=== PATIENT | male | born 1960 | race Caucasian/White ===

== ENCOUNTER 2023-10-06 14:13 | Emergency (ER) | payer OTHER, SELFPAY ==
[2023-10-06 14:21] VITALS: BP 165/84; PULSE 58; TEMP 37; O2SAT 97; BMI 35.7
--- NOTE | 2023-10-06 14:36 | ED.GENADUL1 ---
HPI HPI - General Adult General Chief complaint: Nausea/Vomiting/Diarrhea Stated complaint: NEASUA, VOMITING, DIARRHEA Time Seen by Provider: 10/06/23 14:33 Source: patient Mode of arrival: walk-in History of Present Illness HPI narrative: Patient is a 62-year-old male who presents to the emergency department for 3-day history of vomiting and diarrhea. He reports bilious emesis, multiple episodes of loose stool. He has not had any fevers, upper respiratory symptoms, body aches. He denies abdominal pain, bloody stool or urinary symptoms. No flank or back pain. 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 No new or unusual foods. No medications taken prior to arrival. Patient states he was concerned about getting dehydrated because of the heat which prompted him to come to the ER. Related Data Previous Rx's ?Medication ?Instructions ?Recorded hyoscyamine sulfate 0.125 mg 0.125 mg PO Q6H PRN abdominal pain 10/06/23 tablet (Levsin) #12 tabs ondansetron 4 mg disintegrating 4 mg PO Q6H PRN nausea and 10/06/23 tablet vomiting #12 tabs Allergies Allergy/AdvReac Type Severity Reaction Status Date / Time No Known Drug Allergies Allergy Verified 10/06/23 14:24 Opioid HPI Opioid Management Most Recent Opioid Data: No Data to Display Review of Systems ROS Constitutional Denies: fever or chills Eyes Denies: change in vision Ears, nose, mouth, and throat Denies: throat pain or nasal congestion Cardiovascular Denies: chest pain Respiratory Denies: shortness of breath Gastrointestinal Reports: nausea, vomiting and diarrhea; Denies: abdominal pain Musculoskeletal Denies: back pain Integumentary/Breast Denies: rash Neurological Denies: headache Hematologic/Lymphatic Denies: easy bruising or easy bleeding Exam Narrative Exam Narrative: Gen.: Awake, alert, in no distress Head: Normocephalic, atraumatic ENT: Moist mucous membranes Respiratory: No respiratory distress, lungs clear bilaterally Cardio: Regular rate and rhythm Gastrointestinal: Abdomen is soft, nondistended and nontender to palpation Extremities: Moves extremities equally Psych: Normal mood and affect Neuro: No focal neuro deficit Skin: Warm, dry, intact Constitutional Vital Signs, click to edit/add: Last Vital Signs Temp 98.6 F 10/06/23 14:21 Pulse 53 L 10/06/23 15:47 Resp 18 10/06/23 15:47 BP 124/70 10/06/23 15:47 Pulse Ox 96 10/06/23 15:47 O2 Del Method Room Air 10/06/23 14:21 Course Vital Signs Vital signs: Vital Signs Temperature 98.6 F 10/06/23 14:21 Pulse Rate 58 L 10/06/23 14:21 Respiratory Rate 18 10/06/23 14:21 Blood Pressure 165/84 H 10/06/23 14:21 Pulse Oximetry 97 10/06/23 14:21 Oxygen Delivery Method Room Air 10/06/23 14:21 Temperature 98.6 F 10/06/23 14:21 Pulse Rate 53 L 10/06/23 15:47 Respiratory Rate 18 10/06/23 15:47 Blood Pressure 124/70 10/06/23 15:47 Pulse Oximetry 96 10/06/23 15:47 Oxygen Delivery Method Room Air 10/06/23 14:21 Medical Decision Making MDM Narrative Medical decision making narrative: Patient with no episodes of emesis in the ER. Labs are unremarkable, vitals are stable. Abdomen is soft and benign and the patient has no complaints of abdominal pain in the ER. He was treated with IV fluids, Zofran and Levsin is discharged home with the same. Follow-up with PCP and return to the ER if symptoms change or worsen On reevaluation by attending physician, patient states he would like to be checked for C. difficile. He did not produce any stool in the ER and was given an outpatient order for this. SHARED APC VISIT, PHYSICIAN ATTESTATION: [id number] I performed a substantive part of the MDM during the patient?s E/M visit. I personally evaluated and examined the patient. I personally made or approved the documented management plan and acknowledge its risk of complications. Medical Records Medical records reviewed: Yes I reviewed the patient's medical records Lab Data Lab results reviewed: Yes I reviewed the patient's lab results Labs: Lab Results 10/06/23 Range/Units 15:13 WBC 8.4 (4.0-11.0) 10^3/uL RBC 4.39 L (4.70-6.10) 10^6/uL Hgb 14.2 (14.0-18.0) g/dL Hct 41.1 L (42.0-54.0) % MCV 93.6 (80.0-94.0) fL MCH 32.3 (25.9-34.0) pg MCHC 34.5 (29.9-35.2) g/dL RDW 13.0 (11.0-15.0) % Plt Count 230 (150-450) 10^3/uL MPV 9.2 L (9.5-13.5) fL Neut % (Auto) 59.1 (43.0-75.0) % Lymph % (Auto) 27.8 (20.5-60.0) % [place] % (Auto) 7.1 (1.7-12.0) % Eos % (Auto) 5.3 (0.9-7.0) % Baso % (Auto) 0.5 (0.2-2.0) % Neut # (Auto) 5.0 (1.4-6.5) 10^3/uL Lymph # (Auto) 2.3 (1.2-3.8) 10^3/uL [place] # (Auto) 0.6 (0.3-0.8) 10^3/uL Eos # (Auto) 0.4 (0.0-0.7) 10^3/uL Baso # (Auto) 0.0 (0.0-0.1) 10^3/uL Abs Immat Gran (auto) 0.02 (0.00-0.03) 10^3/uL Imm/Tot Granulo (auto) 0.2 (0.0-0.5) % Sodium 136 (136-145) mmol/L Potassium 3.6 (3.5-5.1) mmol/L Chloride 105 (98-107) mmol/L Carbon Dioxide 26.1 (21.0-32.0) mmol/L Anion Gap 8.5 BUN 15.0 (7.0-18.0) mg/dL Creatinine 0.86 (0.70-1.30) mg/dL Est GFR ( Amer) >60 (>=60) Est GFR (Non-Af Amer) >60 (>=60) BUN/Creatinine Ratio 17.4 Glucose 103 (74-106) mg/dL Lactate 0.9 (0.4-2.0) mmol/L Calcium 9.0 (8.5-10.1) mg/dL Total Bilirubin 0.4 (0.2-1.0) mg/dL AST 17 (15-37) U/L ALT 32 (16-63) U/L Alkaline Phosphatase 92 (46-116) U/L Total Protein 7.0 (6.4-8.2) g/dL Albumin 3.3 L (3.4-5.0) g/dL Globulin 3.7 g/dL Albumin/Globulin Ratio 0.9 Lipase 28.0 (16.0-77.0) U/L Discharge Plan Discharge Stand Alone Forms: Portal Instructions Chief Complaint: Nausea/Vomiting/Diarrhea Clinical Impression: Nausea, vomiting and diarrhea Patient Disposition: Home, Self-Care Time of Disposition Decision: 16:22 Condition: Good Prescriptions / Home Meds: New hyoscyamine sulfate [Levsin] 0.125 mg tablet 0.125 mg PO Q6H PRN (Reason: abdominal pain) Qty: 12 0RF ondansetron 4 mg tablet,disintegrating 4 mg PO Q6H PRN (Reason: nausea and vomiting) Qty: 12 0RF Print Language: Vietnamese Instructions: Acute Nausea and Vomiting (ED), Acute Diarrhea (ED) Referrals: LANCE PAK [Primary Care Provider] - 1 week
[2023-10-06] MEDS: HYOSCYAMINE SULFATE 0.125 MG TAB.SUBL SL (15:11)
[2023-10-06] MEDS: ONDANSETRON PF 4 MG/2 ML VIAL IV (15:11)
[2023-10-06] MEDS: 0.9 % SODIUM CHLORIDE 1,000 ML 999 ML IV (15:11)
[2023-10-06 15:27] LABS: Basophils Percent Auto 0.5 % (0.2-2.0); Eosinophils Absolute Auto 0.4 10^3/uL (0.0-0.7); Eosinophils Percent Auto 5.3 % (0.9-7.0); Hematocrit 41.1 % (42.0-54.0); Hemoglobin 14.2 g/dL (14.0-18.0); Immature Granulocytes Abs Auto 0.02 10^3/uL (0.00-0.03); Immature Granulocytes Pct Auto 0.2 % (0.0-0.5); Lymphocytes Absolute Auto 2.3 10^3/uL (1.2-3.8); Lymphocytes Percent Auto 27.8 % (20.5-60.0); Mean Corpuscular HGB Conc 34.5 g/dL (29.9-35.2); Mean Corpuscular Hemoglobin 32.3 pg (25.9-34.0); Mean Corpuscular Volume 93.6 fL (80.0-94.0); Mean Platelet Volume 9.2 fL (9.5-13.5); Monocytes Absolute Auto 0.6 10^3/uL (0.3-0.8); Monocytes Percent Auto 7.1 % (1.7-12.0); Neutrophils Percent Auto 59.1 % (43.0-75.0); Platelet Count 230 10^3/uL (150-450); Red Blood Count 4.39 10^6/uL (4.70-6.10); White Blood Count 8.4 10^3/uL (4.0-11.0)
[2023-10-06 15:47] VITALS: BP 124/70; PULSE 53; O2SAT 96
[2023-10-06 15:51] LABS: Lactate/Lactic Acid 0.9 mmol/L (0.4-2.0)
[2023-10-06 16:00] LABS: Alanine Aminotransferase 32 U/L (16-63); Albumin Globulin Ratio 0.9; Albumin Level 3.3 g/dL (3.4-5.0); Alkaline Phosphatase 92 U/L (46-116); Anion Gap 8.5; Aspartate Amino Transferase 17 U/L (15-37); BUN Creatinine Ratio 17.4; Bilirubin Total 0.4 mg/dL (0.2-1.0); Carbon Dioxide 26.1 mmol/L (21.0-32.0); Chloride 105 mmol/L (98-107); Estimated GFR (African America >60 (>=60); Estimated GFR (Non-African Ame >60 (>=60); Globulin 3.7 g/dL; Glucose 103 mg/dL (74-106); Potassium 3.6 mmol/L (3.5-5.1); Sodium 136 mmol/L (136-145)
== END 2023-10-06 16:38 | disposition home or self-care (01) ==
PROVIDERS: Physician Assistant; Emergency Provider Emergency Medicine; PCP Family Medicine
DX: R19.7 Diarrhea, unspecified (principal); R11.2 Nausea with vomiting, unspecified
CPT/HCPCS: 36415; 80053; 83605; 83690; 85025; 96361; 96374; 99284; J2405

== ENCOUNTER 2023-10-07 11:34 | Outpatient (REF) | payer OTHER, SELFPAY ==
[2023-10-07 14:09] LABS: C. Difficile PCR NEGATIVE (NEGATIVE)
== END 2023-10-07 11:35 | disposition home or self-care (01) ==
LOC: LAB 11:34
PROVIDERS: PCP Family Medicine; Visit Provider Physician Assistant
DX: R19.7 Diarrhea, unspecified (principal)
CPT/HCPCS: 87493